=== PATIENT | female | born 1950 ===

== ENCOUNTER → 2017-09-17 | Outpatient (CLI) | payer OTHER | LOC: FIMAGING 07:41 | PROVIDERS: ATTEND Surgery | PROC: 0HHU3YZ Insertion of Other Device into Left Breast, Percutaneous Approach (ICD-10-PCS; principal; 2017-09-17) | DX: C50.912 Malignant neoplasm of unspecified site of left female breast (principal) | CPT/HCPCS: 19281; A9520 ==